=== PATIENT | female | born 1985 | race Caucasian/White ===

== ENCOUNTER 2017-02-10 01:15 | Inpatient (IN) | payer BC ==
[2017-02-10] MEDS ORDERED: PROMETHAZINE HCL 25 MG/ML INJ ONE (03:50)
[2017-02-10] MEDS ORDERED: TERBUTALINE SULFATE 1 MG/ML VIAL IV PRN (03:52)
[2017-02-10] MEDS ORDERED: fentaNYL 100 MCG/2 ML INJ IVP PRN (03:52)
[2017-02-10] MEDS ORDERED: OXYTOCIN 20 UNIT in LR 1,000 ML IV PRN (03:52)
[2017-02-10] MEDS ORDERED: EPSOM SALT 454 GM TP PRN (03:52)
[2017-02-10] MEDS ORDERED: LR 1,000 ML IV PRN (03:52)
[2017-02-10] MEDS ORDERED: OLIVE OIL 118 ML BTL MISC PRN (03:52)
[2017-02-10] MEDS ORDERED: LR 500 ML IV ONE (04:00)
[2017-02-10] MEDS ORDERED: PROMETHAZINE HCL 25 MG/ML INJ IVP ONE (04:00)
[2017-02-10 04:07] LABS: PLATELET COUNT 193 10^3/uL (150-400)
[2017-02-10] MEDS ORDERED: PHENYLEPHRINE HCL 100 MCG/ML SYR IVP PRN (04:25)
[2017-02-10] MEDS ORDERED: METOCLOPRAMIDE 10 MG/2 ML VIAL IVP PRN (04:25)
--- NOTE | 2017-02-10 04:29 | PREANESOB ---
Obstetric Pre-Anesthesia Info - General Info Proposed Procedure: CHRISTIE : 2 Para: 1 JES: 02/14/17 Gestational Age: 39 week(s) and 3 day(s) - Labor Status Cervical Dilation per last OB SVE: 2 Magnesium Sulfate in Use: No Indications for Labor Analgesia: Pain Control Labor Epidural: Yes Anesthesia Allergies/Adverse Reactions: Allergy/AdvReac Type Severity Reaction Status Date / Time lactose Allergy Verified 12/20/13 11:09 pertussis vaccine,adsorbed Allergy Verified 12/19/13 14:18 [Pertussis Vaccine,Adsorbed] Home Medications: Medication Instructions Recorded Lactobacillus 3/Fos/Pantethine 2 tab PO DAILY 12/19/13 [Probiotic & Acidophilus Cap] Loratadine [Claritin] 1 cap PO DAILY 12/19/13 Flom 3 1,000 mg Softgel 2 cap PO DAILY 12/19/13 Vit27&Calcium/Iron/FA 3 tab PO BID 12/19/13 [] Docusate Sodium [Colace 100 MG (*)] 100 mg PO BID PRN #30 cap 12/22/13 Ibuprofen [Motrin (*)] 600 mg PO Q6 PRN #30 tab 12/22/13 Visit Medications: Generic Name Dose Route Start Last Admin Trade Name Freq PRN Reason Stop Dose Admin Fentanyl 50 mcg 02/10/17 03:52 Sublimaze IVP 02/20/17 03:51 Q1 PRN Pain, Severe Lactated Ringer's 1,000 mls @ 0 mls/hr 02/10/17 03:52 Lr IV 02/11/17 03:51 PRN PRN SEE PROTOCOL CONDITIONS Protocol Per Protocol Oxytocin 20 unit/ Lactated 1,002 mls @ 150 mls/hr 02/10/17 03:52 Ringer's IV PRN PRN Post- bleeding Ibuprofen 600 mg 02/10/17 03:52 Motrin PO 08/09/17 03:51 Q6HRS PRN post , inflammation Magnesium Sulfate 454 gm 02/10/17 03:52 Epsom Salt TP 08/09/17 03:51 Q1H PRN perineal discomfort [place] Oil 118 ml 02/10/17 03:52 Sweet Oil MISC 08/09/17 03:51 ONCE PRN perineal massage Terbutaline Sulfate 0.25 mg 02/10/17 03:52 Brethine IV 08/09/17 03:51 ONCE PRN Tachysystole Discontinued Medications Generic Name Dose Route Start Last Admin Trade Name Yakelin PRN Reason Stop Dose Admin Lactated Ringer's 500 mls @ 0 mls/hr 02/10/17 04:00 Lactated Ringers IV 02/10/17 04:01 ONCE ONE Wide Open Promethazine HCl Confirm 02/10/17 03:50 Phenergan Administered 02/10/17 03:51 Dose 25 mg .ROUTE .STK-MED ONE Promethazine HCl 25 mg 02/10/17 04:00 Phenergan IVP 02/10/17 04:01 ONCE ONE - Vital Signs Height/Weight (Nursing): Height 157.48 cm Weight 77.111 kg Labs: 02/10/17 03:45
[2017-02-10] MEDS ORDERED: fentaNYL 2MCG/ML/BUP 0.1% RTU 100 ML EP SCH (04:30)
[2017-02-10] MEDS ORDERED: LR 500 ML IV SCH (04:30)
[2017-02-10] MEDS ORDERED: PHENYLEPHRINE HCL 100 MCG/ML SYR ONE (04:31)
[2017-02-10] MEDS ORDERED: BUPIVACAINE 0.25% 30 ML SDV ONE (04:37)
[2017-02-10] MEDS ORDERED: AMMONIA AROMATIC 1 EACH AMP IH ONE (04:39)
[2017-02-10] MEDS ORDERED: OLIVE OIL 118 ML BTL ONE (04:39)
[2017-02-10] MEDS ORDERED: LIDOCAINE 1% 300 MG/30 ML SDV ONE (04:39)
[2017-02-10] MEDS ORDERED: TERBUTALINE SULFATE 1 MG/ML VIAL ONE (04:39)
[2017-02-10] MEDS ORDERED: MISOPROSTOL 200 MCG TAB ONE (04:40)
[2017-02-10] MEDS ORDERED: OXYTOCIN 10 UNIT/ML VIAL ONE (04:40)
--- NOTE | 2017-02-10 05:11 | POSTANESTH ---
Post Anesthetic Evaluation Cardiovascular Status: Similar to Pre-Op Cond Respiratory Status: Similar to Pre-op Cond. Level of Consciousness/Mental Status: Can Participate in Eval Pain Control: Adequate, Prn Tx Ordered (Pt. moving standing unable to be still. RN exam complete dilation. A few contractions baby delivered. No attempt made to place CHRISTIE or spinal..) Nausea/Vomiting Control: Adequate, Prn Tx Ordered
[2017-02-10] MEDS ORDERED: ACETAMINOPHEN 325 MG TAB PO PRN (06:24)
[2017-02-10] MEDS ORDERED: HYDROCODONE/APAP 5/325 TAB PO PRN (06:24)
--- NOTE | 2017-02-10 06:29 | OBDEL ---
Info Type: Vaginal Presentation at Delivery: Vertex L&D Analgesia/Anesthesia Type: IV Narcotics (fentanyl 50 mcg for repair), Local (1% lidocaine), Nitrous GBS+: No Intrapartum Medications: Generic Name Dose Route Start Last Admin Trade Name Fengq PRN Reason Stop Dose Admin Fentanyl 50 mcg 02/10/17 03:52 02/10/17 06:23 Sublimaze IVP 02/20/17 03:51 50 mcg Q1 PRN Administration Pain, Severe Discontinued Medications Generic Name Dose Route Start Last Admin Trade Name Freq PRN Reason Stop Dose Admin Oxytocin 20 unit/ Lactated 1,002 mls @ 150 mls/hr 02/10/17 03:52 02/10/17 06: 22 Ringer's IV 1,002 mls PRN PRN Administration Post- bleeding Promethazine HCl 25 mg 02/10/17 04:00 02/10/17 04:15 Phenergan IVP 02/10/17 04:01 25 mg ONCE ONE Administration - Infant Care Provider Exhibition Organiser/INBOUND CALL CENTER AGENT: Christo Acosta Indications for Delivery: Spontaneous Labor Vaginal Delivery - Delivery Provider Delivery Physician/CNM: Alison Cotto - Labor and Delivery Onset of Contractions Date: 02/09/17 Onset of Contractions Time: 19:00 Onset of Contractions Type: Spontaneous Rupture of Membranes Date: 02/10/17 Rupture of Membranes Time: 04:55 Rupture of Membranes Type: Spontaneous Amniotic Fluid Color: Meconium Stained Dilation Complete Date: 02/10/17 Dilation Complete Time: 04:55 Placenta Delivery Date: 02/10/17 Placenta Delivery Time: 05:22 Total Hours of Labor: 10 Laceration: 2nd Degree Repair: 3-0, Vicryl Vaginal Sponge Count Correct: Yes Vaginal Needle Count Correct: Yes Vaginal Sweep Performed: Yes EBL: 300 Delivery Events: None (except shoulders transverse - no rotation.) Delivery Comment: pt was 2 cm and actively uncomfortable - attempting to get IV and in tub - getting anesth here for CHRISTIE but then SROM and del 3 min later - I arrived min later with placenta still in place Data JES: 02/14/17 Gestational Age: 39 week(s) and 3 day(s) Tong Delivery Date: 02/10/17 Delivery Time: 04:59 Sex of Infant: Male Score (1 Min): 8 Score (5 Min): 9 ICD10 Worksheet Patient Problems: Problems Problem Status Onset (spontaneous vaginal delivery) Acute
--- NOTE | 2017-02-10 07:36 | GHP ---
[f rep st] PREOP HISTORY AND PHYSICAL DATE OF ADMISSION: 02/10/2017 HISTORY UPON ADMISSION: The patient is a 31-year-old G2, P1, at 39+ weeks' gestation, with an estima sera due date of February 14, 2017, who presented in early active labor. Patient reported spontaneous o nset of contractions approximately 7 p.m. with contractions 4-5 minutes apart upon admission after mi dnight. The patient was not having any bleeding and bag of water intact. She was feeling good movement. The patient was 1 cm dilated upon admission and 2 hours later was 2 cm dilated. The alverto ent thereafter made rapid progress and was attempting to get an epidural at the point she broke her w ater with light meconium-stained fluid and delivered immediately thereafter. CARE: The patient was with [facility] since 10 weeks' gestation. The patient ramirez d an uncomplicated . The patient had bronchitis at approximately 21 weeks of and was using albuterol inhaler. The patient has anxiety history and had increased issues through the pr egnancy. The patient would not consider medication use during , but was using homeopathic a pproaches for her anxiety. LABS: Maternal blood type O negative with negative antibody screen. RPR nonreactive. Rube lla immune. Hepatitis B surface antigen negative. HIV negative. Cystic fibrosis, spinal muscular a trophy, and fragile X syndrome all negative. Standard [place] panel all negative. TSH normal. Urina lysis and culture negative. Pap smear negative. Verifi testing was negative and MSAFP was negative. 1-hour Glucola normal. Hematocrit 38%. RhoGAM was given on November 25, 2016. GBS culture was neg ative. PAST MEDICAL HISTORY: Patient with an episode of endometritis, treated with antibiotics 8 weeks after delivery. Patient with a history of asthma as a child. Patient with questionable IBS a nd lactose intolerance. History of migraines in college and TMJ issues. History of anxiety with pos tpartum depression and sees a therapist. PAST SURGICAL HISTORY: Tonsillectomy at age 20. PAST OBSTETRIC HISTORY: In December 2013, a viable male at 7 pounds 2 ounces with a vaginal delivery with an epidural. Patient pushed for 3 hours and had a second-degree laceration. Did have the epis ode of endometritis. ALLERGIES: Had anaphylaxis to Tdap. CURRENT MEDICATIONS: Only vitamins and other supplements. SOCIAL HISTORY: The patient is and lives with her and her son. Patient is a nonsmok er. No alcohol or drug use. PHYSICAL EXAM: GENERAL: Upon admission, the patient is a well-developed, well-nourished white femal e, in moderate discomfort upon admission but did increase despite only being 2 cm dilated. Was inten sely uncomfortable with contractions, attempting to get an epidural. The patient was afebrile with n ormal vital signs. See nursing documentation for full details. heart tones revealed a categor y 1 tracing. Contractions every 2 minutes immediately prior to delivery, and spontaneous rupture of membranes with light meconium-stained fluid was noted at 0455, and delivery was at 0459. I arrived s hortly thereafter, before the delivery of the placenta, and performed that delivery and the repair. EXTREMITIES: Nontender. No edema. ASSESSMENT: Intrauterine at 39+ weeks' gestation with a rapid progress and delivery after rupture of membranes, now a 2, para 2. PLAN: Routine care. /[id number]/MODL
[2017-02-10] MEDS: IBUPROFEN 600 MG TAB PO PRN ×3 (09:22→22:14)
[2017-02-10] MEDS: DOCUSATE SODIUM 100 MG CAP PO PRN (22:14)
[2017-02-11] MEDS: IBUPROFEN 600 MG TAB PO PRN ×3 (05:55→18:33)
[2017-02-11 09:11] VITALS: O2SAT 96
--- NOTE | 2017-02-11 10:50 | OBPP ---
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 bilirubin 02/11/17 10:47 Objective: 02/11/17 00:50 Patient ABO/Rh O NEGATIVE 02/10/17 09:15 Temp Pulse Resp BP Pulse Ox 36.4 C 76 16 99/53 L 96 02/11/17 09:09 02/11/17 09:09 02/11/17 09:09 02/11/17 09:09 02/11/17 09:09 Physical Exam - Physical Exam Neck: non-tender, full range of motion, supple Respiratory: chest non-tender, lungs clear, normal breath sounds Cardiac/Chest: normal peripheral pulses, regular rate, rhythm Abdomen: normal bowel sounds, non-tender Extremities: normal range of motion, non-tender, normal inspection, normal capillary refill Skin: normal color, warm/dry, other (incision clean dry and intact) Neuro/Psych: no motor/sensory deficits, alert, normal mood/affect, oriented x 3
[2017-02-11] MEDS: DOCUSATE SODIUM 100 MG CAP PO PRN ×2 (12:34→20:20)
[2017-02-11] MEDS: HYDROCORTISONE 0.5% CREAM TP SCH ×2 (17:06→17:52)
[2017-02-11] MEDS: IRON POLYSAC/IRON HEME 28 MG TAB PO SCH (20:20)
[2017-02-11] MEDS ORDERED: HYDROCORTISONE 1% CREAM TP SCH (21:00)
[2017-02-12] MEDS: IBUPROFEN 600 MG TAB PO PRN ×3 (00:10→12:17)
--- NOTE | 2017-02-12 08:02 | OBPP ---
Progress Note Assessment/Plan: Assessment: ppd# 2 s/p breast feeding rh neg / baby rh pos - received rhogam Plan: routine post care discharge instructions 02/12/17 07:59 Subjective/ Course: 02/12/17 08:00 patient is doing well. pain is well controlled. normal lochia. breast feeding is going well. denies headache and changes in vision. breast feeding is going well. ready to go home. Objective: 02/11/17 00:50 Patient ABO/Rh O NEGATIVE 02/10/17 09:15 Temp Pulse Resp BP Pulse Ox 36.2 C 84 20 101/65 96 02/11/17 20:00 02/11/17 20:00 02/11/17 20:00 02/11/17 20:00 02/11/17 20:00 Uterine Position/Fundal Height: Umbilicus -2 Uterine Tone: Firm Physical Exam - Physical Exam Neck: non-tender, full range of motion, supple Respiratory: chest non-tender, lungs clear, normal breath sounds Cardiac/Chest: normal peripheral pulses, regular rate, rhythm Abdomen: normal bowel sounds, non-tender Extremities: normal range of motion, non-tender, normal inspection, normal capillary refill Skin: normal color, warm/dry Neuro/Psych: no motor/sensory deficits, alert, normal mood/affect, oriented x 3
--- NOTE | 2017-02-12 08:06 | OBGCSDC ---
General Delivery Information - General Info : 2 Para: 2 Abortions: 0 Type: Vaginal L&D Analgesia/Anesthesia Type: IV Narcotics Admission Date: 02/10/17 Labs: Patient ABO/Rh O NEGATIVE 02/10/17 09:15 Hct 31.7 % (38.0-47.0) L 02/11/17 00:50 - Hospital Course Antepartum: 02/12/17 08:03 initiated care with [facility] at 10 weeks. dated by lmp and first trimester ultrasound. negative genetic testing. hx anxiety. uncomplicated . Intrapartum: 02/12/17 08:05 arrived in early labor. labored in the tub. requested epidural. rapid progress to complete. delivered by nurse as physician was en route. : 02/12/17 08:00 patient is doing well. pain is well controlled. normal lochia. breast feeding is going well. denies headache and changes in vision. breast feeding is going well. ready to go home. Vaginal - Delivery Provider Delivery Physician/CNM: Alison Cotto - Diagnosis Labor: Spontaneous Rupture of Membranes Type: Spontaneous Amniotic Fluid Color: Meconium Stained Laceration: 2nd Degree Repair: 3-0, Vicryl Delivery Events: None (except shoulders transverse - no rotation.) - Delivery EBL: 300 Data JES: 02/14/17 Gestational Age: 39 week(s) and 5 day(s) Tong Delivery Date: 02/10/17 Delivery Time: 04:59 Sex of Infant: Male Score (1 Min): 8 Score (5 Min): 9 Discharge Information - Discharge Information Instruction/Follow Up: Four Weeks (mood check), Six Weeks (post visit)
[2017-02-12 09:05] VITALS: BP 103/64; PULSE 80; RESP 16; TEMP 97.8
[2017-02-12] MEDS: DOCUSATE SODIUM 100 MG CAP PO PRN (12:17)
[2017-02-12] MEDS: IRON POLYSAC/IRON HEME 28 MG TAB PO SCH (12:17)
== END 2017-02-12 15:20 | disposition home or self-care (01) | DRG 775 ==
LOC: FLD 01:15 → OBSVTOIN 06:31 → FOB 10:12
PROVIDERS: ADMIT Obstetrics & Gynecology; ATTEND Obstetrics & Gynecology
PROC: 10E0XZZ Delivery of Products of Conception, External Approach (ICD-10-PCS; principal; 2017-02-10)
PROC: 0KQM0ZZ Repair Perineum Muscle, Open Approach (ICD-10-PCS; principal; 2017-02-10)
DX: O77.0 Labor and delivery complicated by meconium in amniotic fluid (principal); O70.1 Second degree perineal laceration during delivery; O99.343 Other mental disorders complicating pregnancy, third trimester; F41.9 Anxiety disorder, unspecified; Z3A.39 39 weeks gestation of pregnancy; Z37.0 Single live birth
CPT/HCPCS: J2370; J2550; J3010; J3105